=== PATIENT | male | born 1965 | race American Indian/Alaskan Native ===

== ENCOUNTER 2021-08-16 01:41 | Emergency (ER) | payer MEDICAID, OTHER ==
[2021-08-16 01:58] VITALS: BP 128/78; PULSE 71
[2021-08-16] MEDS ORDERED: Hyoscyamine 0.125 MG Tab.SL SL ONE (02:14)
[2021-08-16] MEDS ORDERED: Sodium Chloride 0.9% 10 ML Syringe FLUSH PRN (02:54)
[2021-08-16] MEDS ORDERED: Iopamidol 612 MG/ML 100 ML Bottle IV PRN (03:16)
[2021-08-16] MEDS ORDERED: Sodium Chloride 0.9% 100 ML IV ONE (03:16)
[2021-08-16] MEDS: Sodium Chloride 0.9% 1,000 ML IV STA ×2 (04:06→04:19)
== END 2021-08-16 07:13 | disposition home or self-care (01) ==
LOC: JP.ED 01:41
DX: N13.2 Hydronephrosis with renal and ureteral calculous obstruction (principal); Z72.0 Tobacco use
CPT/HCPCS: 36415; 74018; 74018-26; 74177; 80053; 80305-QW; 81001; 83605; 83690; 85025; 99284; 99284-25; A9270-GY; J7030; Q9967

== ENCOUNTER 2024-03-24 00:45 | Emergency (ER) | payer MEDICAID ==
[2024-03-24 00:57] VITALS: BP 131/92; PULSE 111
[2024-03-24] MEDS: Ketorolac 30 MG/ML SDV IM ONE (01:30)
[2024-03-24] MEDS: Lidocaine 1% 5 ML VIAL INJECT ONE (01:31)
[2024-03-24] MEDS: cefTRIAXone 1 GM Vial IM ONE (01:31)
== END 2024-03-24 02:00 | disposition home or self-care (01) ==
LOC: JP.ED 00:45
DX: K04.7 Periapical abscess without sinus (principal); F17.210 Nicotine dependence, cigarettes, uncomplicated; Z90.49 Acquired absence of other specified parts of digestive tract
CPT/HCPCS: 96372; 99282; 99283; J0696; J1885